=== PATIENT | female | born 1995 | race Caucasian/White ===

== ENCOUNTER → 2020-04-05 | Outpatient (CLI) | payer BC, SELFPAY ==
--- NOTE | 2020-04-05 | FLU_PTH ---
PATIENT: TIEN STONE LOC: [facility] U#:[id number] AGE/SX: 25/F ROOM: RE04/05/[address]: Dr. Roopa Hopkins MD : 1995 BED: DIS: 04/05/2020 SPEC #: [id number] RECD: 04/08/20 10:43 STATUS: YAAKOV REJudy #: [id number] KRISTOFER: 04/05/20 00:[address]: Roopa Hopkins DEPT: CYTOLOGY RECD BY: Robert Leiva ENTERED: 04/08/20 10:44 SP TYPE: Fluid OTHR DR: Kayli Primary Care Phys Tissues: Perianal tissue Procedures: Special Stain Group II Surgery Specimen Level IV Cytospin Fluid HEADER OPERATION: Fine needle aspiration of perianal abscess PRE-OP DIAGNOSIS: Perianal abscess TISSUE SUBMITTED: A - FNA, perianal abscess fluid for cytology, B - FNA, perianal abscess slides x6 DIAGNOSIS CYTOLOGY A. Fine needle aspiration, perianal abscess (cytospin and cell block): Negative for malignant cells. B. Fine needle aspiration, perianal abscess (smears): Acute inflammation. Benign histiocytes. Rare reactive epithelioid cells. AM:carlos 04/09/2020 CYTOLOGY STUDY Slides are reviewed. CYTOLOGY GROSS A - Received is 20 ml of brown, cloudy fluid labeled with the patient's name and and designated per the requisition as perianal abscess. Submitted for cytology preparation including cell block. B - Received are six smears labeled with the patient's name and designated per the requisition as perianal abscess. Submitted for staining. / carlos 04/08/2020 TC:2 CPT: 71521, 52057, 20897
== END | disposition home or self-care (01) ==
LOC: LABSPEC 04-08 08:17
PROVIDERS: Referring Provider Surgery; Visit Provider Surgery
DX: K61.0 Anal abscess (principal)
CPT/HCPCS: 88108; 88305; 88313